=== PATIENT | male | born 1955 ===

== ENCOUNTER 2023-12-26 05:54 | Emergency (ER) | payer OTHER, SELFPAY ==
[2023-12-26 06:07] VITALS: BP 181/110; RESP 20; TEMP 36.4; O2SAT 96
--- NOTE | 2023-12-26 06:09 | ED_ITS ---
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 No known injury, noticed this this morning when he was working. Wears glasses but not regularly. Related Data Home Medications Medication Instructions Recorded Confirmed atorvastatin 20 mg tablet 20 mg PO QPM 12/26/23 12/26/23 Allergies Allergy/AdvReac Type Severity Reaction Status Date / Time No Known Drug Allergies Allergy Verified 12/26/23 06:07 Exam Narrative: Exam Narrative: General: well nourished , NAD Head: Atraumatic and normocephalic ENT: External ears and external nose are normal Eyes: External ocular movements are intact, subconjunctival hemorrhage with chemosis in the right lateral eye stopping at about 8 o'clock Neck: Full spontaneous range of motion of the neck Lungs: No respiratory distress Musculoskeletal: No tenderness or deformity Neurologic: No gross focal neurologic deficits Skin: No rashes Psych: Mood and affect are appropriate Const: Vital Signs, click to edit/add: Vital Signs - 24 hr 12/26/23 06:07 Temperature 97.6 F Respiratory Rate 20 Blood Pressure [Ri ght Upper Arm] 181/110 H Pulse Oximetry 96 Oxygen Delivery Me thod Room Air Course Course ED Course: Patient seen examined, prior records are reviewed. Patient with atraumatic redness of the eye, exam demonstrates chemosis and subconjunctival hemorrhage. Patient was started on erythromycin ointment, instructed to use cool packs, and follow up with eye care as needed. Vital Signs Vital signs: Initial Vital Signs Temperature 97.6 F 12/26/23 06:07 Temperature Source Temporal Artery Scan 12/26/23 06:07 Respiratory Rate 20 12/26/23 06:07 Blood Pressure 181/110 H 12/26/23 06:07 Blood Pressure Mean 133 H 12/26/23 06:07 Pulse Oximetry 96 12/26/23 06:07 Oxygen Delivery Method Room Air 12/26/23 06:07 Vital Signs Temperature 97.6 F 12/26/23 06:07 Respiratory Rate 20 12/26/23 06:07 Blood Pressure 181/110 H 12/26/23 06:07 Pulse Oximetry 96 12/26/23 06:07 Oxygen Delivery Method Room Air 12/26/23 06:07 Temperature 97.6 F 12/26/23 06:07 Respiratory Rate 20 12/26/23 06:07 Blood Pressure 181/110 H 12/26/23 06:07 Pulse Oximetry 96 12/26/23 06:07 Oxygen Delivery Method Room Air 12/26/23 06:07 Discharge Plan Discharge Clinical Impression: Subconjunctival hemorrhage, Chemosis Patient Disposition: Home, Self-Care Condition: Stable Instructions: Subconjunctival Hemorrhage (ED) Additional Instructions: Apply antibiotic ointment twice a day for 5 days Cool packs 15-20 minutes at a time every 2-3 hours while awake You may use a moisturizing drop between doses of antibiotic ointment for comfort Follow-up with eye clinic in 5-7 days if not better Activity Level: No Restrictions Discharge Diet: Regular Prescriptions: No Action atorvastatin 20 mg tablet 20 mg PO QPM Stand Alone Forms: MyHealth Info Instructions
== END 2023-12-26 06:33 | disposition home or self-care (01) ==
LOC: ED 06:28
PROVIDERS: Emergency Provider Family Medicine
DX: H11.31 Conjunctival hemorrhage, right eye (principal); H11.421 Conjunctival edema, right eye
CPT/HCPCS: 99283; A9270

== ENCOUNTER 2024-12-25 13:42 | Emergency (ER) | payer OTHER, SELFPAY ==
[2024-12-25 13:57] VITALS: BP 155/105; PULSE 84; RESP 16; TEMP 37; O2SAT 98
--- NOTE | 2024-12-25 14:26 | ED.GENADULT ---
HPI - General Adult General Chief complaint: Groin Pain Stated complaint: possible tear in groin Time Seen by Provider: 12/25/24 13:56 History of Present Illness HPI narrative: Arrives with complaints of right side groin and testicle pain and swelling, seen at [facility] and was told he needs an US, but pain is increased today and so he presented here . Alert and oriented, ABCs intact. 69-year-old man presenting to the emergency department with some abdominal and groin pain. 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 Has continued to increase. Seen at [facility] locally and was recommended for an ultrasound. There is concern of a hernia. Is not describing dysuria. He notes when coughs his pain and burning increase. Hurts also to lift something of about 25 lb he has noted increased discomfort. Sounds like it is noted to have of swelling in this area as well. No concern for STI. No unusual penile drainage. Sounds like it hurts to stand up straight or manipulate his right leg. Related Data Home Medications ?Medication ?Instructions ?Recorded ?Confirmed atorvastatin 20 mg tablet 20 mg PO QPM 12/26/23 12/25/24 Allergies Allergy/AdvReac Type Severity Reaction Status Date / Time No Known Drug Allergies Allergy Verified 12/25/24 13:56 Review of Systems Status of ROS: Reports: 6 or more systems reviewed and unremarkable except as noted in History and below [facility] Social History Smoking Status: Never smoker How often do you have a drink containing alcohol: never AUDIT-C Alcohol total score: 0 Non-prescribed substance use: denies use Exam Narrative: Exam Narrative: Pleasant. NAD but clearly uncomfortable with transition. Breathing easily. Abdomen is soft. There is soft swelling/fullness to the right inguinal area. Do not appreciate wall defect. Quite tender into this area without cellulitic change or induration. He is tender also in the right testicle versus the left. Does not appear to be particularly swollen. No discrete fluid collection or fluctuance appreciated. Tender along the cordal structures as well. Const: Vital Signs, click to edit/add: Vital Signs - 24 hr 12/25/24 13:57 Temperature 98.6 F Pulse Rate [Pulse Oximeter] 84 Respiratory Rate 16 Blood Pressure [Ri ght Upper Arm] 155/105 H Pulse Oximetry 98 Oxygen Delivery Me thod Room Air Documenting provider has reviewed patient's vital signs: yes Course Vital Signs Vital signs: Initial Vital Signs Temperature 98.6 F 12/25/24 13:57 Temperature Source Temporal Artery Scan 12/25/24 13:57 Pulse Rate 84 12/25/24 13:57 Respiratory Rate 16 12/25/24 13:57 Blood Pressure 155/105 H 12/25/24 13:57 Blood Pressure Mean 121 H 12/25/24 13:57 Pulse Oximetry 98 12/25/24 13:57 Oxygen Delivery Method Room Air 12/25/24 13:57 Vital Signs Temperature 98.6 F 12/25/24 13:57 Pulse Rate 84 12/25/24 13:57 Respiratory Rate 16 12/25/24 13:57 Blood Pressure 155/105 H 12/25/24 13:57 Pulse Oximetry 98 12/25/24 13:57 Oxygen Delivery Method Room Air 12/25/24 13:57 Temperature 98.6 F 12/25/24 13:57 Pulse Rate 84 12/25/24 13:57 Respiratory Rate 16 12/25/24 13:57 Blood Pressure 155/105 H 12/25/24 13:57 Pulse Oximetry 98 12/25/24 13:57 Oxygen Delivery Method Room Air 12/25/24 13:57 Medical Decision Making MDM Narrative Medical decision making narrative: There is enough fullness in the area that I would have concerns about possible hernia. Otherwise appears to have epididymo-orchitis. Can certainly arrange for ultrasound here. Ice pack. This does not appear to be coming from his hip joint. Indication: Right groin pain for 2 weeks. Hernia versus epididymitis. Technique: Grayscale imaging was provided. Color and spectral Doppler was also acquired. Comparison: None Findings: The testes are normal in size and echogenicity. The right testis measures 4.4 x 2.3 x 3.1 centimeters and the left testis measures 4.2 x 2.1 x 3.4 centimeters. No testicular mass. Blood flow is normal without evidence of torsion or hyperemia to suggest orchitis. The epididymis appear normal without hypervascularity to suggest epididymitis. No significant hydrocele. No varicocele. Sonography of the area of pain shows no evidence of hernia. A solitary normal appearing lymph node is noted in this area. Impression: No specific visible cause for pain. Testes and epididymis appear normal. No visible hernia. Dictated by Nicko Cordova MD @ 12/25/2024 3:23:41 PM Discussed absence of findings with Mr. Walden. I think at this point would treat symptoms with anti-inflammatories. Lymph node discussed. Perhaps this does represent some upstream inflammation like epididymitis. Would not hurt to do exercises for groin strain as well. See patient discharge plan for further discussion Appear to have inflammation of your groin and associated parts. We were not able to visualize hernia. Yes. It sounds like it would be a good idea to rest for a little. Writing you work note through Saturday at least. If you are not any better I would consider follow-up early next week. I am prescribing ibuprofen that I would like you to take regularly over the next 5 days with a little food. Alternative to the ibuprofen could be up to 375 mg of naproxen 2 times daily. Feel free to apply ice packs for comfort 2 - 3 times daily over the next few days. Also prescribing antibiotic Bactrim for 10 days. Please see handout on groin strain for some exercises that might be helpful but I am not convinced that this is a musculoskeletal issue. Discharge Plan Discharge Clinical Impression: Groin pain, Epididymo-orchitis Patient Disposition: Home w/ Parent or Adult Condition: Improved Additional Instructions: Appear to have inflammation of your groin and associated parts. We were not able to visualize hernia. Yes. It sounds like it would be a good idea to rest for a little. Writing you work note through Saturday at least. If you are not any better I would consider follow-up early next week. I am prescribing ibuprofen that I would like you to take regularly over the next 5 days with a little food. Alternative to the ibuprofen could be up to 375 mg of naproxen 2 times daily. Feel free to apply ice packs for comfort 2 - 3 times daily over the next few days. Also prescribing antibiotic Bactrim for 10 days. Please see handout on groin strain for some exercises that might be helpful but I am not convinced that this is a musculoskeletal issue. Parece tener inflamaci?n en la hiral y las zonas aleda?as. No pudimos visualizar la hernia. S?. Parece que ser?a buena idea descansar un poco. Le escribir? reggie nota de trabajo al menos hasta el lunes. Si no mejora, considerar?a reggie karen de seguimiento a principios de la pr?xima semana. Le recetar? ibuprofeno y me gustar?a que lo tomara regularmente sunny los pr?ximos 5 d?as con algo de comida. Reggie alternativa al ibuprofeno podr?a ser hasta 375 mg de naproxeno 2 veces al d?a. No dude en aplicar compresas de hielo para mayor comodidad de 2 a 3 veces al d?a sunny los pr?ximos d?as. Tambi?n le recetar? el antibi?yuko Bactrim sunny 10 d?as. Consulte el folleto sobre distensi?n inguinal para hemanth algunos ejercicios que podr?an ser ?tiles, cesar no estoy convencido de que se trate de un problema musculoesquel?yuko. Prescriptions: No Action atorvastatin 20 mg tablet 20 mg PO QPM Follow Up/Referrals: Provider,Not a Local [Primary Care Provider, Family Practice] Stand Alone Forms: MyHealth Info Instructions
--- NOTE | 2024-12-25 14:38 | CRLHL7_ITS ---
For Patients: As a result of the Century Cures Act, medical imaging exams and procedure reports are released immediately into your electronic medical record. You may view this report before your referring provider. If you have questions, please contact your health care provider. Indication: Right groin pain for 2 weeks. Hernia versus epididymitis. Technique: Grayscale imaging was provided. Color and spectral Doppler was also acquired. Comparison: None Findings: The testes are normal in size and echogenicity. The right testis measures 4.4 x 2.3 x 3.1 centimeters and the left testis measures 4.2 x 2.1 x 3.4 centimeters. No testicular mass. Blood flow is normal without evidence of torsion or hyperemia to suggest orchitis. The epididymis appear normal without hypervascularity to suggest epididymitis. No significant hydrocele. No varicocele. Sonography of the area of pain shows no evidence of hernia. A solitary normal appearing lymph node is noted in this area. Impression: No specific visible cause for pain. Testes and epididymis appear normal. No visible hernia. Dictated by Nicko Cordova MD @ 12/25/2024 3:23:41 PM (Electronically Signed)
== END 2024-12-25 16:23 | disposition home or self-care (01) ==
PROVIDERS: Emergency Provider Family Medicine
DX: N45.3 Epididymo-orchitis (principal); R10.30 Lower abdominal pain, unspecified
CPT/HCPCS: 76870; 93976; 99284

== ENCOUNTER 2025-04-26 08:31 | Day surgery (SDC) | payer OTHER, SELFPAY ==
[2025-04-26] MEDS: LACTATED RINGERS 1000 ML 1,000 ML 100 ML IV (07:10)
[2025-04-26 08:43] VITALS: BMI 24.5
--- NOTE | 2025-04-26 08:59 | SUR.PREOP ---
admission gone over with pt with Monet cameronfast food cashier plaster mold maker here with Dr. Stewart and also Dr. Fuller
--- NOTE | 2025-04-26 09:04 | W.PM.H&PU ---
History & Physical Update History & Physical Update H&P Reviewed and patient assessed: No changes noted
--- NOTE | 2025-04-26 09:04 | PM.GSPRC ---
Operative Note Date of procedure: 04/26/25 Pre-op diagnosis: Right inguinal hernia Post-op diagnosis: Same Type of Procedure: Open repair reducible right inguinal hernia with mesh Indications: The patient is a 69-year-old male with a right inguinal hernia. Initially he developed pain and then later was found to have a bulge. This was fairly symptomatic for him and after discussion, he agreed to proceed with hernia repair. Procedure Description: After discussing the risks and benefits of the procedure, the patient signed informed consent.? The operative site was marked and the patient was brought to the operating room and placed on the operating table in supine position.? Care was taken to pad the patient's pressure points.?? The patient was then given sedation by anesthesia.?? The operative site was then prepped and draped in the usual sterile fashion.? A time-out was then performed. Local anesthetic was injected into the skin and subcutaneous tissue overlying the inguinal canal. An ilioinguinal nerve block was performed. An oblique incision was made over the external ring. Dissection was carried down into the subcutaneous tissue using cautery until the external oblique fascia was encountered. This was cleared off. The external ring was identified and after injection of more local anesthetic, the external oblique was incised using a knife. This was extended using the Metzenbaum scissors with care to dissect the underlying cord structures away from the fascia before cutting. The cord was cleared from the inside of the inguinal canal and looped with a Tabitha drain. An indirect inguinal hernia was identified. The hernia sac was dissected off of the cord structures. The sac was opened to ensure no intra-abdominal structures were contained within. This was then oversewn with a 3-0 Vicryl stick tie and divided. The proximal end was reduced into the abdomen. A small cord lipoma was similarly ligated and divided. A piece of polypropylene mesh was obtained and cut to size. This was secured to the pubic tubercle using to 0 Prolene on a double-armed suture. The Prolene was run along the inguinal ligament inferiorly and along the transversalis fascia superiorly, securing the tails around the cord and re-creating the internal ring. The ring was just large enough to permit my fingertip. The wound was examined for hemostasis which was found to be adequate. The external oblique fascia was then reapproximated with 2-0 Vicryl absorbable suture. The wound was then closed in layers including Noah's fascia and the dermis with absorbable suture. The skin was then closed with a running subcuticular suture. Glue was then applied. Instrument, sponge, and needle counts were correct at the end of the case. The patient was woken and taken to the recovery in stable condition. The scrotum was examined at the end of the case and both testicles were located within the scrotum. ? The patient tolerated the procedure well. Findings: Small cord lipoma and indirect inguinal hernia Anesthesia: MAC Surgeon: Simi Stewart MD Estimated blood loss (mL): 10 Condition: stable Disposition: same day
[2025-04-26 09:06] VITALS: BP 138/91; PULSE 72; RESP 16; TEMP 37.1; O2SAT 97
[2025-04-26] MEDS: SODIUM CHLORIDE 0.9 % (FLUSH) 10 ML SYRINGE IVF (09:23)
[2025-04-26] MEDS: LIDOCAINE 1 % PF 30 ML INJECTION (12:00)
[2025-04-26] MEDS: BUPIVACAINE 0.5% 30 ML INJECTION (12:00)
--- NOTE | 2025-04-26 12:43 | P.ANES_ITS ---
Anesthesia Charges Start Date/Time Anesthesia Start Date: 04/26/25 Anesthesia Start Time: 10:43 Stop Date/Time Anesthesia Stop Date: 04/26/25 Anesthesia Stop Time: 12:43 Coding CPT Codes CPT Codes: ANESTH REPAIR OF HERNIA - 65440 ([id number]) P1 - NORMAL HEALTHY PATIENT, QK - SLEEVE FIXER 2-4 CNCRNT ANES PROC, QX - JUMPBASTING LINING BASTER SVOscar W/ MED DIRECTION
--- NOTE | 2025-04-26 12:43 | W.ANESCHARGE ---
Anesthesia Charges Start Date/Time Anesthesia Start Date: 04/26/25 Anesthesia Start Time: 10:43 Stop Date/Time Anesthesia Stop Date: 04/26/25 Anesthesia Stop Time: 12:43 Coding CPT Codes CPT Codes: ANESTH REPAIR OF HERNIA - 08274 ([id number]) P1 - NORMAL HEALTHY PATIENT, QK - FEATHER MAKER 2-4 CNCRNT ANES PROC, QX - EMBALMER/FUNERAL DIRECTOR SVOscar W/ MED DIRECTION
[2025-04-26 12:44] VITALS: BP 122/83; PULSE 70; RESP 16; TEMP 36.9; O2SAT 97
[2025-04-26 13:00] VITALS: BP 125/86; PULSE 71; RESP 16; O2SAT 98
[2025-04-26 13:15] VITALS: BP 167/58; PULSE 68; RESP 16; O2SAT 98
[2025-04-26 13:30] VITALS: BP 169/58; PULSE 68; RESP 16; O2SAT 98
--- NOTE | 2025-04-26 13:43 | P.ANES_ITS ---
Anesthesia Charges Start Date/Time Anesthesia Start Date: 04/26/25 Anesthesia Start Time: 10:43 Stop Date/Time Anesthesia Stop Date: 04/26/25 Anesthesia Stop Time: 12:43 Coding CPT Codes CPT Codes: ANESTH REPAIR OF HERNIA - 13504 ([id number]) P1 - NORMAL HEALTHY PATIENT, QX - PLAN CONSULTANT JIMMY W/ MED DIRECTION, QK - CLINICAL LABORATORY MANAGER 2-4 CNCRNT ANES PROC
--- NOTE | 2025-04-26 13:43 | W.ANESCHARGE ---
Anesthesia Charges Start Date/Time Anesthesia Start Date: 04/26/25 Anesthesia Start Time: 10:43 Stop Date/Time Anesthesia Stop Date: 04/26/25 Anesthesia Stop Time: 12:43 Coding CPT Codes CPT Codes: ANESTH REPAIR OF HERNIA - 44728 ([id number]) P1 - NORMAL HEALTHY PATIENT, QX - PRODUCT ADVISOR JIMMY W/ MED DIRECTION, QK - APPLICATIONS INSTRUCTOR 2-4 CNCRNT ANES PROC
[2025-04-26 13:45] VITALS: BP 145/89; PULSE 57; RESP 16; TEMP 36.9; O2SAT 97
--- NOTE | 2025-04-26 14:06 | SUR.PHASEII ---
Mayco friend here with pt he will picker / packer RX at [facility] and picker / packer a bottle of a stool softener i called [facility] and told them to grab a stool softener for pt
== END 2025-04-26 14:17 | disposition home or self-care (01) ==
PROVIDERS: Visit Provider Surgery
PROC: (CPT 49505; principal; 2025-04-26 09:30)
DX: K40.90 Unilateral inguinal hernia, without obstruction or gangrene, not specified as recurrent (principal)
CPT/HCPCS: 49505; 00830; T1013; C1781; J0665; J0690; J1171; J1885; J2003; J2250; J2704; J3010; J3490; J7120